=== PATIENT | female | born 1990 | race American Indian/Alaskan Native ===

== ENCOUNTER 2017-06-12 15:18 | Emergency (ER) | payer OTHER ==
[2017-06-12 15:18] VITALS: BMI 29.4
[2017-06-12 15:32] VITALS: BP 130/76; PULSE 98; RESP 18; TEMP 97.1; O2SAT 100
--- NOTE | 2017-06-12 17:37 | ED PDOC ---
HPI: Psych/Substance Abuse Time Seen by Provider: 06/12/17 15:21 Chief Complaint (Nursing): Psychiatric Evaluation Chief Complaint (Provider): anxiety, panic attack History Per: Patient History/Exam Limitations: no limitations Onset/Duration Of Symptoms: Mins Current Symptoms Are (Timing): Better Suicide/Self Injury Attempted (Context): None Additional Complaint(s): Pt states she had a panic attack at work. Pt reports feeling anxiety, uncontrollable crying and reports laying on the ground in her office bathroom. Pt states the last time she had that same was 1 month ago. Pt states they are becoming more and more frequent. Pt called the crisis hotline who instructed her to go the the nearest ER. States she had no SOB, chest pain, palpitations. Past Medical History Reviewed: Historical Data, Nursing Documentation, Vital Signs Vital Signs: Last Vital Signs Temp 97.1 F L 06/12/17 15:30 Pulse 98 H 06/12/17 15:30 Resp 18 06/12/17 15:30 BP 130/76 06/12/17 15:30 Pulse Ox 100 06/12/17 15:30 - Medical History PMH: No Chronic Diseases - Surgical History Surgical History: No Surg Hx - Family History Family History: States: No Known Family Hx - Living Arrangements Living Arrangements: With Family - Social History Current smoker - smoking cessation education provided: No - Immunization History Hx Tetanus Toxoid Vaccination: No Hx Influenza Vaccination: No Hx Pneumococcal Vaccination: No - Home Medications Home Medications: Ambulatory Orders Medication Instructions Recorded Omeprazole [Prilosec] 20 mg PO DAILY #20 capsule. 11/04/15 - Allergies Allergies/Adverse Reactions: Allergies Allergy/AdvReac Type Severity Reaction Status Date / Time shrimp Allergy RASH Verified 11/04/15 14:04 SCALLOP Allergy RASH Uncoded 03/21/15 11:57 Review of Systems ROS Statement: Except As Marked, All Systems Reviewed And Found Negative Constitutional: Negative for: Fever, Chills Psych: Positive for: Anxiety, Other (Crying ) Physical Exam - Reviewed Nursing Documentation Reviewed: Yes Vital Signs Reviewed: Yes - Physical Exam Appears: Positive for: Well, Non-toxic, No Acute Distress Head Exam: Positive for: ATRAUMATIC, NORMAL INSPECTION, NORMOCEPHALIC Skin: Positive for: Normal Color, Warm, DRY Eye Exam: Positive for: Normal appearance ENT: Positive for: Normal ENT Inspection Neck: Positive for: Normal, Painless ROM Cardiovascular/Chest: Positive for: Regular Rate, Rhythm Respiratory: Positive for: CNT, Normal Breath Sounds Back: Positive for: Normal Inspection Extremity: Positive for: Normal ROM Neurologic/Psych: Positive for: Alert, Gait - ECG O2 Sat by Pulse Oximetry: 100 Medical Decision Making Medical Decision Making: Evaluation completed by community organization worker. Disposition - Clinical Impression Clinical Impression: Anxiety - Patient ED Disposition Is Patient to be Admitted: No Counseled Patient/Family Regarding: Diagnosis, Need For Followup - Disposition Referrals: [facility] [Outside] [facility] [Outside] Disposition: Routine/Home Disposition Time: 17:37 Condition: GOOD Instructions: Generalized Anxiety Disorder (ED), Anxiety (ED)
== END 2017-06-12 17:58 | disposition home or self-care (01) ==
LOC: H.ER 15:18
DX: F41.0 Panic disorder [episodic paroxysmal anxiety] (principal)